=== PATIENT | female | born 1990 | race Caucasian/White ===

== ENCOUNTER 2023-01-17 16:06 | Outpatient (CLI) | payer OTHER, SELFPAY ==
--- NOTE | 2023-01-17 16:25 | XR_ITS ---
WS: [id number] Exam: XR ankle RT min 3V* [id number] Date/Time of Exam: 01/17/2023 4:56 PM Reason For Exam: Pain and swelling in right ankle No acute fracture or dislocation. The ankle mortise is well-maintained. Moderate lateral soft tissue swelling. IMPRESSION: 1. Lateral soft tissue swelling-no acute fracture.
== END 2023-01-17 16:07 | disposition home or self-care (01) ==
PROVIDERS: PCP Internal Medicine; Visit Provider Internal Medicine
DX: M25.571 Pain in right ankle and joints of right foot (principal); M25.471 Effusion, right ankle; M79.89 Other specified soft tissue disorders
CPT/HCPCS: 73610

== ENCOUNTER → 2023-01-18 16:48 | Outpatient (BNVA) | payer OTHER, SELFPAY | PROVIDERS: PCP Internal Medicine; Visit Provider Podiatrist Foot & Ankle Surgery | DX: M00.9 Pyogenic arthritis, unspecified (principal); M25.571 Pain in right ankle and joints of right foot; L53.9 Erythematous condition, unspecified | CPT/HCPCS: 80503; 82945; 87070; 87075; 87205; 89050 ==

== ENCOUNTER 2023-05-26 10:19 | Outpatient (CLI) | payer OTHER, SELFPAY ==
[2023-05-26 10:43] LABS: Basophils # 0.1 10^3/uL (0.0-0.1); Basophils % 0.7 %; Eosinophils # 0.1 10^3/uL (0.0-0.8); Eosinophils % 0.8 %; Hematocrit 39.2 % (36-47); Lymphocytes % 23.5 %; Mean Corpuscular HGB Conc 33.2 g/dL (30-55); Mean Corpuscular Hemoglobin 28.7 pg (27-33); Mean Corpuscular Volume 86.5 fl (85-98); Mean Platelet Volume 11.4 fL (7.4-10.4); Monocytes # 0.6 10^3/uL (0.2-0.9); Monocytes % 6.7 %; Neutrophils # 5.91 10^3/uL (1.8-7.7); Nucleated Red Blood Cells % 0 %; Platelet Count 226 10^3/cmm (157-399); Red Blood Count 4.53 10^6/uL (3.85-5.65); Red Cell Distribution Width 12.1 % (12.1-15.1); White Blood Count 8.69 10^3/uL (3.29-11.43)
[2023-05-26 11:01] LABS: Alanine Aminotransferase 10 U/L (0-33); Albumin Level 3.6 g/dL (3.5-5.2); Alkaline Phosphatase 63 U/L (35-105); Anion Gap 14.5 (5-19); Aspartate Amino Transferase 12 U/L (0-32); Blood Urea Nitrogen 8 mg/dL (6-20); Calcium 8.5 mg/dL (8.5-10.5); Carbon Dioxide 24 mmol/L (22-29); Chloride 103 mmol/L (98-107); Glomerular Filtration Rate 115.1 mL/min (90-130); Glucose 77 mg/dL (65-115); Osmolality Calculated 283 mOsm/kg (285-295); Potassium 3.5 mmol/L (3.5-5.1); Sodium 138 mmol/L (136-145); Total Bilirubin 0.2 mg/dL (0.15-1.2); Total Protein 6.6 g/dL (6.6-8.7)
== END 2023-05-26 10:20 | disposition home or self-care (01) ==
LOC: LAB 10:19
PROVIDERS: PCP Internal Medicine; Visit Provider Internal Medicine
DX: R10.31 Right lower quadrant pain (principal)
CPT/HCPCS: 36415; 80053; 85025

== ENCOUNTER 2023-05-26 10:50 | Outpatient (CLI) | payer OTHER, SELFPAY ==
--- NOTE | 2023-05-26 10:55 | CT_ITS ---
WS: [id number] CT ABDOMEN AND PELVIS WITH CONTRAST HISTORY: ABDOMINAL PAIN, RIGHT LOWER QUADRANT TECHNIQUE: Imaging performed of the abdomen and pelvis with IV contrast. Single phase imaging of the abdomen. Coronal and sagittal reformats are submitted. All CT scans at [facility] use at [address] one of these dose optimization techniques: automated exposure control; mA and/or kV adjustment per patient size (includes targeted exams where dose is matched to clinical indication); or iterative re construction. IV CONTRAST: Omnipaque 350; 100 mL IV. Oral contrast: No DLP: 370.97 mGy.cm COMPARISON: None available. Lower thorax: Lung bases are clear. Heart is normal size. No hiatal hernia. Liver/biliary system: Irregular low-attenuation mass in the RIGHT lobe of liver measures 2.2 x 1.8 cm . Favor hemangioma but this should be reevaluated. Otherwise negative. Gallbladder: Contracted. Pancreas: Normal size pancreas and pancreatic duct. No adjacent inflammation. Spleen: Normal size spleen. No mass or infarct. Adrenal glands: Normal. Right kidney: Normal. Left kidney: Normal. Aorta: Normal. Lymphadenopathy: There are a few small hyperemic lymph nodes in the RIGHT lower quadrant. Free fluid: Tiny amount of free fluid in the RIGHT adnexa. GI tract: There is marked submucosal edema in the ascending colon and the cecum. Mucosal enhancement. There is no perforation. The appendix is not definitely identified. Abdominal wall: Unremarkable abdominal wall. No hernia. Pelvis: No free fluid or adenopathy within the pelvis. Bones: Unremarkable. IMPRESSION: 1. Advanced ascending colon colitis. Imaging findings are most consistent with infectious or inflamm atory colitis. The appendix is not definitely identified. Appendix may be encased by the inflammatory process. This is not a typical appearance for appendicitis. 2. Tiny amount of free fluid in the RIGHT adnexa. 3. Hypoechoic mass in the RIGHT lobe of the liver measures 2.2 x 1.8 cm. Favor this is a hemangioma. Recommend follow-up liver ultrasound or MRI liver with and without contrast. Notified Elizabet Zhang MD at 05/26/2023 12:09 PM.
[2023-05-26] MEDS: iohexol 350 mg/mL 500 mL Btl (per mL) IV (11:34)
== END 2023-05-26 10:51 | disposition home or self-care (01) ==
LOC: RAD 10:51
PROVIDERS: PCP Internal Medicine; Visit Provider Internal Medicine
DX: R10.31 Right lower quadrant pain (principal); K52.9 Noninfective gastroenteritis and colitis, unspecified; R16.0 Hepatomegaly, not elsewhere classified
CPT/HCPCS: 74177; Q9967